=== PATIENT | female | born 1995 | race Caucasian/White ===

== ENCOUNTER 2024-10-10 10:13 | Emergency (ER) | payer SELFPAY ==
[~2024-10-10] VITALS: Ht 165.1 cm; Wt 65.0 kg
[2024-10-10 10:15] VITALS: O2SAT 96
[2024-10-10] MEDS ORDERED: EPIN0.3P3 IM (10:30)
[2024-10-10] MEDS: DEXAMETHASONE 10 MG/ML VIAL IV ONE (10:40)
[2024-10-10] MEDS: FAMOTIDINE 20MG/2ML VIAL IV ONE (10:41)
[2024-10-10 14:02] VITALS: BP 100/64; PULSE 65; RESP 16; TEMP 36.8; O2SAT 97
== END 2024-10-10 14:03 | disposition home or self-care (01) ==
LOC: ER 10:13
DX: T78.2XXA Anaphylactic shock, unspecified, initial encounter (principal); X58.XXXA Exposure to other specified factors, initial encounter
CPT/HCPCS: 99291; 96374; 96375; J1100; J1308